=== PATIENT | female | born 1945 | race Caucasian/White ===

== ENCOUNTER 2017-06-02 17:08 | Emergency (ER) | payer OTHER, MEDICARE ==
[~2017-06-02] VITALS: Ht 162.6 cm; Wt 93.4 kg
[~2017-06-02 17:08] MED LIST: ACETAMINOPHN-T1 EACH PO; CALCIUM + D3 E1 EACH PO; CLARITIN,ALAVAR10 MG PO; FLONASE16 G1 BOTH NARES; HYDROCODON-ACE1 EAC7 PO; LORAZEPAM1 MG PO; LOSARTAN POTAS100 MG PO; NABUMETONE750 MG PO; PROTONIX40 MG PO; SINGULAIR10 MG PO; SYNTHROID112 MCG PO; TRIAMTERENE-HC1 EACH PO; VENTOLIN HFA18 GM IH; VITAMIN D22000 UNIT PO
[2017-06-02] MEDS ORDERED: VIBRAMYCIN100 MG PO (18:13)
[2017-06-02 18:29] VITALS: BP 134/71
== END 2017-06-02 18:31 | disposition home or self-care (01) ==
LOC: EME 17:08
DX: J18.9 Pneumonia, unspecified organism (principal); J45.909 Unspecified asthma, uncomplicated; I10 Essential (primary) hypertension; K21.9 Gastro-esophageal reflux disease without esophagitis; Z88.1 Allergy status to other antibiotic agents; Z88.2 Allergy status to sulfonamides; Z88.5 Allergy status to narcotic agent; Z88.0 Allergy status to penicillin
CPT/HCPCS: 71020; 87651 90; 99281; 99284

== ENCOUNTER → 2018-02-10 | Outpatient (CLI) | payer MEDICARE, OTHER ==
[~2018-02-10] MED LIST changes: +VIBRAMYCIN100 MG PO
== END | disposition home or self-care (01) ==
LOC: CDC 12:10
DX: Z01.810 Encounter for preprocedural cardiovascular examination (principal); M79.641 Pain in right hand; M19.041 Primary osteoarthritis, right hand; M65.331 Trigger finger, right middle finger; I44.0 Atrioventricular block, first degree; I44.7 Left bundle-branch block, unspecified; R94.31 Abnormal electrocardiogram [ECG] [EKG]
CPT/HCPCS: 93000